=== PATIENT | female | born 2005 | race Caucasian/White ===

== ENCOUNTER 2023-11-25 13:59 | Emergency (ER) | payer BC, SELFPAY ==
[2023-11-25 14:13] VITALS: BP 120/74
[2023-11-25 16:21] VITALS: BP 145/82
--- NOTE | 2023-11-25 16:42 | ED.GENMED ---
History of Present Illness
General
Chief Complaint: Head Injury
Source: patient and family
Time Seen by Provider: 11/25/23 16:19
History of Present Illness
History of Present Illness:
18-year-old female with no significant past medical history, recently diagnosed with a concussion after sustaining head injury and a syncopal event last week, presenting to the emergency department for evaluation of continued right-sided headache
that has been mostly continuous since the syncopal event. Patient and family were concerned with the continued headache which is why they presented to the ER today. Patient was seen and diagnosed with a concussion by the primary care provider.
Patient has been taking Motrin/Tylenol with some relief. Denies any visual disturbances, focal weakness or numbness, photo or phonophobia, nausea or vomiting, abdominal pain or any other symptoms. Notes a history of head injury and concussion in
the past. Patient reporting primary care provider had ordered blood work as patient has been having some syncopal episodes recently. Patient notes that she will always have a prodrome prior to the syncope and that this syncope was not any
different and correlates this with being outside for an extended period of time in the heat and not having enough to eat/drink.
Past History
Past History
ED Past Medical History: None
ED Past Surgical History: Tonsilectomy
Social History
Tobacco: Non-smoker
Alcohol: None
Drug: None
Personal: Single
Living: with family
Review of Systems
Review of Systems
All Other Systems: ROS reviewed and negative except as documented in HPI and ROS
Phy Exam
Physical Exam
Physical Exam:
GENERAL: Alert , in no apparent distress
HEAD: NCAT
EYE: conjunctiva clear, pupils 4 mm, PERRL, EOMI
NECK: Supple
ENT: o/p clr, mmm.
CARDIAC: Regular rate and rhythm
LUNGS: Clear breath sounds bilaterally, no acute respiratory distress, no wheezes/rales/rhonchi
NEUROLOGICAL: Alert and oriented x 3, moves all extremities, ambulates with steady gait, no ataxia
SKIN: Warm and dry, skin intact.
MUSCULOSKELETAL: well perfused.
PSYCH: Normal and appropriate interaction.
Scores
Heart Failure Risk
Heart Failure Risk Score: Not Applicable
Heart Score for Chest Pain Patients
STEMI patient?: Not applicable
Withdrawal Assessment of Alcohol
Withdrawal Assessment Completed?: Not applicable
Course
Vital Signs
Initial and Last Documented VS:
Initial Vital Signs
Temp Pulse Resp BP Pulse Ox
97.8 F 60 20 120/74 99
11/25/23 14:13 11/25/23 14:13 11/25/23 14:13 11/25/23 14:13 11/25/23 14:13
Last Documented Vital Signs
Temp Pulse Resp BP Pulse Ox
97.8 F 60 20 120/74 99
11/25/23 14:13 11/25/23 14:13 11/25/23 14:13 11/25/23 14:13 11/25/23 14:13
MDM/Problems Addressed
Differential Diagnosis Includes:
Postconcussive syndrome, tension headache, migraine headache, I do not have concern for intracranial bleeding, vasovagal syncope, orthostasis, cardiogenic syncope
MDM/Problems Addressed:
18-year-old female presenting emergency department for evaluation of persistent headache after she sustained head injury when she syncopized 1 week ago. Patient family at the bedside and they did witness the syncopal episode and this was onto a
wooded ground. Patient did not have any vomiting afterwards but has just continued to note a right-sided headache. Discussed risk versus benefit of CT imaging and at this time patient and family prefer to forego any imaging. I also offered blood
work which patient declines as well. We had an extensive conversation in regards to postconcussive syndrome and symptoms be seen with this. Also discussed syncope. Patient has appointment scheduled with neurology which I think is reasonable.
Will trial rizatriptan as needed for headache. Advised patient on ensuring she is eating and drinking enough throughout the day. Aware of return precautions to the ER. Stable for discharge home.
*Pulse Oximetry
Patient hypoxic: no
*Critical Care Note
Total Time (30-74mins, 75-104mins- exclusive of procedures): Not Applicable
ED Attending Note
-
Portions of this chart may have been created with voice recognition software.� Occasional wrong word or��sound alike� substitutions may have occurred due to the inherent limitations of voice recognition software.
Discharge Plan
Departure
Patient Disposition: Home (Routine Discharge)
Date of Disposition: 11/25/23
Time of Disposition: 16:42
Patient with high blood pressure during this ER visit?: No
Discharge Problem:
Headache
Instructions: Head Injury in Adults (DC)
Prescriptions:
New
rizatriptan 10 mg tablet
10 mg PO ONCE Qty: 8 0RF
Interventions
Interventions:
*Risk Screen - Suicide Last Done: 11/25/23 14:13
*General Assessment Last Done: 11/25/23 14:13
*Neglect/Abuse Screening Last Done: 11/25/23 14:13
Discharge Date and Time
Print Language: FRISIAN
[2023-11-25 17:00] VITALS: BP 125/104
[2023-11-25 17:26] VITALS: BP 109/90
[2023-11-25 17:30] VITALS: BMI 28.7
[2023-11-25 17:31] VITALS: BP 109/90
[2023-11-25 17:34] VITALS: BP 109/90
== END 2023-11-25 17:35 | disposition home or self-care (01) ==
LOC: EMR 13:59
PROVIDERS: EMERGENCY PHYSICIAN Student in an Organized Health Care Education/Training Program; FAMILY PHYSICIAN Family Medicine
DX: R51.9 Headache, unspecified (principal); Z87.820 Personal history of traumatic brain injury; Z88.5 Allergy status to narcotic agent
CPT/HCPCS: 99283